=== PATIENT | male | born 1955 | race Caucasian/White ===

== ENCOUNTER 2018-08-30 20:43 | Inpatient (IN) | payer OTHER, MEDICAID ==
[~2018-08-30] VITALS: Ht 177.8 cm; Wt 74.8 kg
--- NOTE | 2018-08-30 21:00 | NUR ---
BIBPA UNIT 265 FROM [facility] ASSISTED LIVING W C/O CHEST DISCOMFORT/HEAVINESS RADIATING TO NECK "I FEEL LIKE MY HEART IS BEATING THROUGH MY THROAT". WITH MILD SOB X1 DAY. -N/V, C/O ON/OFF HEADACHES, DIZZINESS AND BLURRED VISION WHILE WALKING ON THE STREETS. TO ER BED 12, HOOKED TO MONITOR, CHANGED TO GOWN, PROVIDED W WARM BLANKET, AWAITING MD LEPE. CURB WORKER AT BEDSIDE
--- NOTE | 2018-08-30 21:01 | NUR ---
DR REDMOND AT BEDSIDE
[2018-08-30 21:20] LABS: BASOPHILS # (AUTO) 0.1 /CMM (0.0-0.2); BASOPHILS % (AUTO) 0.7 % (0.0-2.0); HEMATOCRIT 48 % (39-51); HEMOGLOBIN 16.5 g/dL (13.5-17.5); LYMPHOCYTES # (AUTO) 1.4 /CMM (0.8-4.8); MEAN CORPUSCULAR HGB CONC 35 g/dl (31.0-36.0); MEAN CORPUSCULAR VOLUME 98 fL (80-96); MONOCYTES # (AUTO) 0.5 /CMM (0.1-1.30); MONOCYTES % (AUTO) 7.2 % (2.0-12.0); NEUTROPHILS # (AUTO) 5.5 /CMM (1.8-8.9); NEUTROPHILS % (AUTO) 72.1 % (43.0-81.0); PLATELET COUNT (AUTO) 219 /CMM (150-450); RED BLOOD CELL COUNT(AUTO) 4.86 MIL/uL (4.5-6.0); WHITE BLOOD COUNT (AUTO) 7.6 K/uL (4.3-11.0)
[2018-08-30 21:28] LABS: CARBON DIOXIDE 30 mmol/L (21-32); CHLORIDE 101 mmol/L (98-107); CREATININE 0.9 mg/dL (0.6-1.3); GLUCOSE 100 mg/dL (74-106); POTASSIUM 3.8 mmol/L (3.5-5.1); SODIUM SERUM 139 mmol/L (136-145); UREA NITROGEN, BLOOD 13 mg/dL (7-18)
[2018-08-30 21:41] LABS: B-TYPE NATRIURETIC PEPTIDE 37 PG/ML (0-125)
--- NOTE | 2018-08-30 22:49 | NUR ---
CALLED NURSING ELECTRIC RELAY TESTER REQUESTING A BED.
--- NOTE | 2018-08-30 22:50 | NUR ---
WHEELED OUT VIA [facility] FOR CT SCAN.
--- NOTE | 2018-08-30 23:15 | NUR ---
REPORT GIVEN TO ADRIÁN BECK RN FOR SARAI
--- NOTE | 2018-08-30 23:23 | NUR ---
TELE BED 308-2 GIVEN
[2018-08-31] MEDS ORDERED: ASPI-605 PO (00:13)
[2018-08-31] MEDS ORDERED: ATOR40TA PO (00:13)
[2018-08-31] MEDS ORDERED: OXYC-133 PO (00:13)
[2018-08-31] MEDS ORDERED: CLOP75TA15 PO (00:13)
--- NOTE | 2018-08-31 00:22 | NUR ---
REPORT GIVEN TO SANTY ZHANG
--- NOTE | 2018-08-31 00:28 | NUR ---
SPOKE TO REHAB SPECIALIST. SHE INFORMED ME THAT DR. LEMONS WOULD BE CALLING TO HAVE A DR TO DR ANDERSON
[2018-08-31] MEDS ORDERED: ASPIRIN 81 MG TAB.CHEW PO SCH (00:30)
[2018-08-31] MEDS ORDERED: ATORVASTATIN 40 MG TABLET PO SCH ×2 (00:30→18:00)
[2018-08-31] MEDS ORDERED: ATORVASTATIN 40 MG TABLET ONE (00:40)
[2018-08-31] MEDS ORDERED: ASPIRIN 81 MG TAB.CHEW ONE (00:40)
[2018-08-31 00:53] LABS: CHOLESTEROL 186 mg/dL (<200); HDL CHOLESTEROL 74 mg/dL (40-60); LDL 96 mg/dL (0-99); TRIGLYCERIDES 117 mg/dL (30-150)
--- NOTE | 2018-08-31 01:00 | NUR ---
waiting for pt's insurance clearance
[2018-08-31] MEDS ORDERED: oxyCODONE/APAP (5/325 MG) 1 UDTAB TABLET PO PRN (02:00)
[2018-08-31] MEDS ORDERED: oxyCODONE/APAP (5/325 MG) 1 UDTAB TABLET ONE (02:17)
--- NOTE | 2018-08-31 06:48 | NUR ---
[facility] CALLED. THEY DONT HAVE BED AVAILABLE AND THEY ARE GIVING AUTHORIZATION FOR ADMISSION. AUTH # [id number]
--- NOTE | 2018-08-31 07:45 | NUR ---
staff readiness officer opening notes Received PT from ER nurse. PT is alert and oriented X4. PT denies any pain or any discomfort at this time. No SOB. Respiration is equal, clear and unlabored. PT's VS was within normal limits. PT also on Tele monitor. IV is intact, patent and flush without resistance. Bed at low position and call light is within reach. Will continue to monitor.
--- NOTE | 2018-08-31 07:48 | NUR ---
PATIENT TRANSFERRED TO ROOM 308-2 VIA ACLS PROTOCOL. BEDSIDE REPORT GIVEN TO JANET. PATIENT A/OX4, BREATHING EVEN AND UNLABORED, DENIES CHEST PAIN AT THIS TIME. ENDORSED TO JANET MADERA.
--- NOTE | 2018-08-31 07:49 | NUR ---
PER ADRIÁN BECK, PATIENT ACCEPTED BY DR. LÓPEZ CORNEJO.
--- NOTE | 2018-08-31 07:50 | NUR ---
SITE MANAGER NOTES RECEIVED PT FROM E.R. STAFF VIA [facility], PT IS AWAKE, ALERT AND ORIENTED, ABLE TO AMBULATE FROM [facility] TO BED, WITH COMPLAINT OF CHEST HEAVINESS, NOT IN DISTRESS, RESPIRATIONS NORMAL, ASSISTED TO BED, MADE COMFORTABLE, ROOM SET UP ORIENTATION PROVIDED TO PT, VERBALIZED UNDERSTANDING, PLACED ON TELE MONITORING, SINUS RHYTHM ON THE MONITOR, AWAITING ORDERS FROM MD, CALL LIGHT PLACED WITHIN REACH.
[2018-08-31 08:00] VITALS: BP 139/71
[2018-08-31] MEDS ORDERED: ASPIRIN EC 81 MG TABLET.DR PO SCH (10:30)
[2018-08-31] MEDS ORDERED: CLOPIDOGREL BISULFATE 75 MG TABLET PO SCH (10:30)
[2018-08-31 11:06] LABS: BASOPHILS % (AUTO) 0.6 % (0.0-2.0); EOSINOPHILS % (AUTO) 1.3 % (0.0-6.0); HEMATOCRIT 45 % (39-51); HEMOGLOBIN 15.4 g/dL (13.5-17.5); LYMPHOCYTES # (AUTO) 1.2 /CMM (0.8-4.8); LYMPHOCYTES % (AUTO) 16.4 % (20.0-44.0); MEAN CORPUSCULAR HGB CONC 34 g/dl (31.0-36.0); MEAN CORPUSCULAR VOLUME 98 fL (80-96); MONOCYTES # (AUTO) 0.6 /CMM (0.1-1.30); MONOCYTES % (AUTO) 7.8 % (2.0-12.0); NEUTROPHILS # (AUTO) 5.4 /CMM (1.8-8.9); NEUTROPHILS % (AUTO) 73.9 % (43.0-81.0); PLATELET COUNT (AUTO) 204 /CMM (150-450); RED BLOOD CELL COUNT(AUTO) 4.58 MIL/uL (4.5-6.0); WHITE BLOOD COUNT (AUTO) 7.3 K/uL (4.3-11.0)
[2018-08-31 11:18] LABS: ALBUMIN 3.7 g/dL (3.4-5.0); BILIRUBIN,TOTAL 1.1 mg/dL (0.2-1.0); CALCIUM, SERUM 8.8 mg/dL (8.5-10.1); CREATININE 0.8 mg/dL (0.6-1.3); MAGNESIUM 2.2 mg/dL (1.8-2.4); PHOSPHORUS 4.3 mg/dL (2.5-4.9); POTASSIUM 4.3 mmol/L (3.5-5.1); TOTAL PROTEIN, SERUM 6.9 g/dL (6.4-8.2)
[2018-08-31] MEDS ORDERED: METOPROLOL TARTRATE 50 MG TABLET PO SCH (12:00)
[2018-08-31 12:30] VITALS: BP 118/73
[2018-08-31] MEDS ORDERED: IOHEXOL-350 100 ML VIAL IV ONE (13:02)
[2018-08-31] MEDS ORDERED: METOPROLOL TARTRATE INJ 5 MG/5 ML AMPUL ONE (13:02)
[2018-08-31] MEDS ORDERED: IV NS 0.9% 250 ML IV ONE (13:02)
[2018-08-31] MEDS ORDERED: CT SWABBABLE VALVE TRANS SET 1 EA INFUS.SET MC ONE (13:02)
[2018-08-31] MEDS ORDERED: IV NS 0.9% 500 ML IV ONE ×2 (13:19→13:30)
[2018-08-31] MEDS ORDERED: NITROGLYCERIN 4.9 GM SPRAY SL ONE (13:30)
[2018-08-31] MEDS ORDERED: METOPROLOL TARTRATE INJ 5 MG/5 ML AMPUL IVP ONE (13:30)
--- NOTE | 2018-08-31 14:00 | NUR ---
RN MS NOTES PT AWAKE, IIN BED, NO COMPLAINT OF PAIN AT THIS TIME, RESPIRATIONS NORMAL, PT SEEN BY DR. CORTES, CT ANGIO ORDERED AND COMPLETED, TOLERATED WELL, NO OTHER COMPLAINT AT THIS TIME, ON TELE MONITORING, CALL LIGHT WITHIN REACH.
--- NOTE | 2018-08-31 18:45 | NUR ---
WRAPPER LAYER AND EXAMINER SOFT WORK NOTES PT AWAKE, SITTING AT THE BED, ALERT AND ORIENTED, NO COMPLAINT OF CHEST PAIN, NO SOB, AMBULATES WITH STEADY GAIT, TOLERATES CURRENT DIET, CONSUMED 100% OF HIS MEALS, SEEN BY MD, PLAN OF CARE DISCUSSED WITH PT, ALL PT CONCERNS RELAYED TO MD, COMPLETED CT ANGIO, RESULTS RELAYED TO PT, DISCHARGE ORDER GIVEN BY MD, PT INFORMED, DISCHARGE AND MEDICATION INSTRUCTIONS PROVIDED TO PT, VERBALIZED UNDERSTANDING, BELONGINGS ACCOUNTED FOR, PT REQUESTING FOR AMBULANCE OR TAXI, CASE MANAGEMENT AND RESIDENTIAL CONSTRUCTION INSTRUCTOR INFORMED BUT PT NOT QUALIFIED FOR IT, PT ARRANGED FOR HIS OWN UBER RIDE, ASSISTED BY ADJUSTER AND INSPECTOR TO HOSPITAL LOBBY, LEFT VIA PRIVATE CAR IN STABLE CONDITION.
== END 2018-08-31 18:34 | disposition home or self-care (01) | DRG 205 ==
LOC: ER 20:51 → TELE 23:39 → MED 08-31 08:09 → TELE 08-31 15:00
PROVIDERS: ADMIT Nurse Practitioner Acute Care; ATTEND Nurse Practitioner Acute Care
DX: M94.0 Chondrocostal junction syndrome [Tietze] (principal); K83.1 Obstruction of bile duct; Z86.73 Personal history of transient ischemic attack (TIA), and cerebral infarction without residual deficits; E03.9 Hypothyroidism, unspecified; E78.5 Hyperlipidemia, unspecified; E80.6 Other disorders of bilirubin metabolism; K21.9 Gastro-esophageal reflux disease without esophagitis
CPT/HCPCS: 36415; 70450-TC; 71045-TC; 75574; 80048-TC; 80053-TC; 80061-TC; 83735-TC; 83880; 84100-TC; 84443-TC; 84484-TC; 85025-TC; 87081-TC; 93307-TC; G0378; J3490; J7040; J7050; Q9967